=== PATIENT | female | born 1950 | race Asian ===

== ENCOUNTER 2024-03-14 11:10 | Emergency (ER) | payer MEDICARE ==
[~2024-03-14] VITALS: Ht 160 cm; Wt 66.6 kg
[2024-03-14 11:27] VITALS: O2SAT 98
[2024-03-14] MEDS: LISINOPRIL 10MG TABLET PO ONE (12:11)
[2024-03-14 15:04] LABS: BASOPHILS % 0.5 % (0.0-2.0); EOSINOPHILS % 0.6 % (0.0-5.0); HEMATOCRIT. 46.5 % (36.0-48.0); HEMOGLOBIN. 14.8 g/dL (12.0-16.0); LYMPHOCYTES % 36.7 % (20.0-50.0); MEAN CORPUSCULAR HEMOGLOBIN 28.7 pg (28.0-32.0); MEAN CORPUSCULAR HGB CONC 31.8 g/dL (31.0-37.0); MEAN CORPUSCULAR VOLUME 90.4 fL (81.0-99.0); MEAN PLATELET VOLUME 9.1 fl (7.4-10.4); MONOCYTES % 6.6 % (2.0-8.0); NEUTROPHILS % 55.6 % (40.0-76.0); PLATELET 247 x1000/uL (130-400); RED BLOOD CELL COUNT 5.15 mill/uL (4.2-5.4); RED CELL DISTRIBUTION WIDTH 13.5 % (11.6-14.6); WHITE BLOOD COUNT 7.4 x1000/uL (4.5-11.0)
[2024-03-14 15:12] LABS: CHLORIDE 106 mEq/L (98-107); POTASSIUM 4.1 mEq/L (3.5-5.1); SODIUM 140 mEq/L (136-145)
[2024-03-14 15:13] LABS: CALCIUM 9.9 mg/dL (8.7-10.4); CARBON DIOXIDE 28 mEq/L (21-32)
[2024-03-14 15:18] LABS: CREATININE 0.8 mg/dL (0.6-1.0); GLUCOSE 105 mg/dL (70-105); UREA NITROGEN BLOOD 13 mg/dL (9-23)
[2024-03-14] MEDS ORDERED: LISI10TA26 MT (15:25)
[2024-03-14] MEDS ORDERED: AMLO5TAB88 MT (15:25)
[2024-03-14 15:38] VITALS: BP 196/119; PULSE 85; RESP 16; TEMP 36.94740; O2SAT 98
[2024-03-14] MEDS: AMLODIPINE 5MG TABLET PO ONE (15:39)
== END 2024-03-14 15:38 | disposition home or self-care (01) ==
LOC: ER 11:10
DX: I10 Essential (primary) hypertension (principal); Z76.0 Encounter for issue of repeat prescription
CPT/HCPCS: 36415; 71045; 80048; 85025; 93005; 99285